=== PATIENT | male | born 1980 | race Caucasian/White ===

== ENCOUNTER 2018-04-22 18:36 | Emergency (ER) | payer OTHER ==
[~2018-04-22] VITALS: Ht 172.7 cm; Wt 93.0 kg
== END 2018-04-23 00:46 | disposition home or self-care (01) ==
LOC: ER 18:36
DX: K52.9 Noninfective gastroenteritis and colitis, unspecified (principal)

== ENCOUNTER 2019-04-27 12:00 | Outpatient (CLI) | payer OTHER | END 2019-04-27 13:41 | disposition home or self-care (01) | LOC: RAD 12:00 | DX: M54.89 Other dorsalgia (principal); M25.521 Pain in right elbow; M25.522 Pain in left elbow ==

== ENCOUNTER 2019-11-25 08:50 | Emergency (ER) | payer OTHER ==
[~2019-11-25] VITALS: Ht 175.3 cm; Wt 95.3 kg
[2019-11-25] MEDS ORDERED: NORFLEX100MG PO (12:28)
== END 2019-11-25 12:46 | disposition home or self-care (01) ==
LOC: ER 08:50
DX: B34.9 Viral infection, unspecified (principal)

== ENCOUNTER 2019-11-28 15:46 | Emergency (ER) | payer OTHER ==
[~2019-11-28] VITALS: Ht 175.3 cm; Wt 96.6 kg
[~2019-11-28 15:46] MED LIST: NORFLEX100MG PO
== END 2019-11-28 19:38 | disposition home or self-care (01) ==
LOC: ER 15:46
DX: B34.9 Viral infection, unspecified (principal)